=== PATIENT | male | born 1980 | race Caucasian/White ===

== ENCOUNTER 2019-02-19 07:22 | Emergency (ER) | payer OTHER ==
[~2019-02-19] VITALS: Ht 165.1 cm; Wt 63.0 kg
[~2019-02-19 07:22] MED LIST: CEPH-443 PO; ONDA4TAB14 PO
[2019-02-19 07:25] VITALS: Ht 165.1 cm; Wt 63.0 kg
[2019-02-19] MEDS ORDERED: ONDANSETRON 4 MG INJ IV STA ×2 (07:27→10:19)
[2019-02-19] MEDS ORDERED: FAMOTIDINE 20 MG INJ IV STA (07:27)
[2019-02-19] MEDS ORDERED: SOD CHLORIDE 0.9% 1,000 ML IV STA (07:27)
[2019-02-19] MEDS ORDERED: morphine 4 MG/ML VIAL IV STA (07:27)
[2019-02-19] MEDS ORDERED: IOHEXOL 300MG/ML 150 ML BTL ONE (08:42)
[2019-02-19] MEDS ORDERED: SOD CHLORIDE 0.9% 100 ML ONE (08:42)
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
[2019-02-19] MEDS ORDERED: CEFTRIAXONE 1 GM/50 ML (PMX) 50 ML IVPB ONE (09:30)
[2019-02-19 10:25] VITALS: BP 106/78; PULSE 78; RESP 18
== END 2019-02-19 11:14 | disposition home or self-care (01) ==
LOC: E/R 07:22
DX: N30.00 Acute cystitis without hematuria (principal); R40.2142 Coma scale, eyes open, spontaneous, at arrival to emergency department; R40.2362 Coma scale, best motor response, obeys commands, at arrival to emergency department; R40.2252 Coma scale, best verbal response, oriented, at arrival to emergency department
CPT/HCPCS: 74177; 80053; 81001; 82150; 83690; 85025; 85610; 85730; 87086; 96374; 96375; 96376; 99285; J0696; J2270; J2405; J7030; Q9967